=== PATIENT | male | born 1950 | race African-American/Black ===

== ENCOUNTER → 2018-03-15 | Outpatient (CLI) | payer MEDICARE ==
[2016-02-20 07:53] VITALS: BP 128/84
[~2018-03-15] MED LIST: ELET40TA PO; LOVA20TA2 PO; SILO8CAP2 PO
--- NOTE | 2018-03-15 15:35 | KCIC ---
EXAM: Lumbar spine MRI without contrast. HISTORY: Lower back pain. L4 fracture. TECHNIQUE: Multiplanar, multisequence magnetic resonance imaging of the lumbar spine was performed without contrast. COMPARISON: None. FINDINGS: There is minimal lumbar scoliosis. There is minimal retrolisthesis of L1 on L2. No vertebral body fracture is seen. There is edema within the right L5 pedicle, likely degenerative rather than due to a stress reaction. No suspicious osseous lesion is seen. The conus terminates at L1. There is a 2.6 x 0.6 cm T2 hyperintense lesion anterior to the L1-L2 disc space and between the aorta and inferior vena cava. This may be due to an incidental retroperitoneal cystic lesion. This is not included on axial images. At L1-L2, there is a disc bulge and anterior predominant endplate remodeling. There is mild bilateral facet arthropathy. There is mild bilateral foraminal stenosis. At L2-L3, there is a disc bulge and suspected right foraminal to extraforaminal disc protrusion. There is mild bilateral facet arthropathy. There is mild bilateral foraminal stenosis. At L3-L4, there is a left foraminal to extra foraminal disc protrusion and annular tear superimposed on a disc bulge. There is mild bilateral facet arthropathy. There is hypertrophy of the ligamentum flavum. There is mild bilateral foraminal stenosis. There is mild central canal stenosis. At L4-L5, there is a disc bulge and endplate remodeling. There is mild bilateral facet arthropathy. There is mild central canal stenosis. At L5-S1, there is no stenosis. IMPRESSION: 1. Mild multilevel degenerative change within the lumbar spine, described in detail above. This results in stenosis as before mentioned levels. 2. No acute osseous finding. Specifically, no finding to correlate with a reported L4 fracture on a study performed at an outside facility. The prior study is not available for comparison at the time of dictation. Electronically signed by: Evelina Hickman MD (03/15/2018 3:31 PM) [id number]
== END | disposition home or self-care (01) ==
LOC: KCIC MRI 14:16
PROVIDERS: ATTEND Nurse Practitioner Family
DX: M47.26 Other spondylosis with radiculopathy, lumbar region (principal); M48.061 Spinal stenosis, lumbar region without neurogenic claudication; R93.89 Abnormal findings on diagnostic imaging of other specified body structures
CPT/HCPCS: 72148

== ENCOUNTER → 2018-12-01 | Outpatient (CLI) | payer MEDICARE ==
[2016-02-20 07:53] VITALS: BP 128/84
--- NOTE | 2018-12-01 15:26 | KCIC ---
STUDY: MRI of the right knee without contrast INDICATION: Right knee pain. COMPARISON: None. TECHNIQUE: Multiplanar MR imaging of the right knee performed without the use of intravenous or intra-articular contrast. FINDINGS: Menisci: The medial meniscus is mostly absent with the exception of some torn, thinned and irregular posterior horn and root tissue. A large displaced meniscal fragment to account for this appearance is not identified and prior subtotal resection is a consideration given history. The lateral meniscus posterior root is irregular and high in signal. Free edge tearing of the mid lateral meniscal body, image 12 series 8. Cruciate ligaments: Intact ACL and PCL. Collateral ligaments: The MCL is intact. No acute injury to the lateral collateral ligamentous structures. The IT band is unremarkable. Tendons: The extensor tendon complex is intact. The semimembranosus tendon is thickened and irregular with partial tearing. Cartilage: Patellofemoral: Extensive high-grade/full-thickness chondral loss involving the patellar facets and median ridge with subchondral edema and cystic change. Chondral heterogeneity and fissuring at the trochlear groove at the medial trochlea. Lateral compartment: Partial thickness chondral loss at the weightbearing lateral tibial plateau and some high-grade chondral loss of the far medial lateral tibial plateau approaching the tibial eminence. Chondral thinning at the far posterior nonweightbearing lateral femoral condyle. Medial compartment: Prominent area of high-grade/full-thickness chondral loss at the medial aspect of the weightbearing medial compartment. Some partial thickness chondrosis extends into the nonweightbearing medial femoral condyle. Bones: No acute fracture. Marrow edema seen at the tibial eminence in the expected location of the lateral meniscal root attachment, image 13 series 8. Miscellaneous: Small knee joint effusion small Szymanski's cyst which may be leaking fluid along the pes anserine tendons. IMPRESSION: 1. Near complete absent visualization of the medial meniscus with the exception of some torn and irregular posterior horn and root fibers without displaced meniscal tissue seen. This could be related to prior subtotal meniscectomy given history of remote prior surgery. 2. Heterogeneous signal of the lateral meniscus posterior root especially near its tibial insertion. There is some marrow edema in the region of its expected insertion which could be related to meniscal contusion or partial tearing. Free edge tearing of the mid lateral meniscal body also noted. 3. The PCL is intact. The ACL is somewhat heterogeneous but with intact traversing fibers. 4. Tendinosis and partial tearing of the semimembranosus near its tibial insertion. 5. Tricompartmental chondrosis with greatest involvement of the patellofemoral and medial compartments where there are large areas of high-grade/full-thickness loss. Scattered associated subchondral marrow edema/cystic change. 6. Small knee joint effusion and a small Szymanski's cyst which may be leaking fluid along the pes anserine tendons. Electronically signed by: FRANCISCO BOSCH MD (12/01/2018 3:23 PM) [id number]
== END | disposition home or self-care (01) ==
LOC: KCIC MRI 09:11
PROVIDERS: ATTEND Physician Assistant
DX: S83.281A Other tear of lateral meniscus, current injury, right knee, initial encounter (principal); M25.461 Effusion, right knee; M71.21 Synovial cyst of popliteal space [Baker], right knee; X58.XXXA Exposure to other specified factors, initial encounter; Y93.89 Activity, other specified; Y92.89 Other specified places as the place of occurrence of the external cause; Y99.8 Other external cause status
CPT/HCPCS: 73721

== ENCOUNTER 2019-03-14 07:18 | Day surgery (SDC) | payer MEDICARE ==
[~2019-03-14] VITALS: Ht 189.2 cm; Wt 97.5 kg
[~2019-03-14 07:18] MED LIST changes: +HYDROmorphone 2 MG/ML VIAL IV PRN; +IV RINGERS,LACTATED 1000ML 1,000 ML IV SCH; +MORPHINE SULFATE 2 MG/ML VIAL. IV PRN; +ONDANSETRON PF 4 MG/2 ML VIAL. IV PRN; +PROCHLORPERAZINE 10 MG/2 ML VIAL. IV PRN; +fentaNYL PF VIAL 100 MCG/2 ML VIAL IV PRN
[2019-03-14] MEDS ORDERED: ASPI81TA50 PO (07:41)
[2019-03-14] MEDS ORDERED: LEVE500T6 PO (07:43)
[2019-03-14] MEDS ORDERED: PRIM50TA24 PO (07:43)
[2019-03-14] MEDS ORDERED: LIDOCAINE 2% PF 5 ML VIAL. ONE (08:03)
[2019-03-14] MEDS ORDERED: PROPOFOL 20 ML IV ONE (08:03)
[2019-03-14] MEDS ORDERED: ONDANSETRON PF 4 MG/2 ML VIAL. ONE (08:03)
[2019-03-14] MEDS ORDERED: fentaNYL PF VIAL 100 MCG/2 ML VIAL ONE (08:03)
[2019-03-14] MEDS ORDERED: DEXAMETHASONE SOD PHOS 4 MG/ML VIAL ONE (08:03)
--- NOTE | 2019-03-14 08:19 | DISCH ---
DISCHARGE INSTRUCTIONS Condition on Discharge Condition on Discharge: Stable Activity After Discharge Activity Instructions for Disc: Activity as tolerated Bathing Instructions: Shower-keep dressing dry Lifting Instructions after Dis: No heavy lifting, No pulling or pushing Weight Bearing Status after Di: As tolerated Diet after Discharge Diet after Discharge: Regular Wound Incision Care Wound/Incision Care: Ice to area for comfort, Keep wound/cast CDI, Keep wound elevated, Change dressing Other wound/incision instructi: okay to change dressing after [address] after DC Call your doctor for: Concerns you may have Follow-Up Follow up with: Rajat in 2 weeks KEISHA MARTÍNEZ II, MD Mar 14, 2019 08:19
[2019-03-14] MEDS ORDERED: BUPIVACAINE MPF 0.5% 30 ML VIAL. ONE (08:26)
[2019-03-14] MEDS ORDERED: LIDOCAINE 1% 20 ML VIAL. ONE (08:26)
--- NOTE | 2019-03-14 09:11 | PDOC4 ---
Operative Note Operative Note Date of procedure: 03/14/2019 Surgeon: Rodolfo Martínez Preoperative diagnosis: Right middle finger trigger finger Postoperative diagnosis: Same Procedure performed: Open right third trigger finger release Anesthesia: General Findings: Thickened nodule and flexor tendon Blood loss: 1mL Tourniquet time: 10min Complications: none Reason for procedure: Patient is a pleasant 68-year-old male who has had painful catching at his right third digit. We have tried injections in the past and these have not had any effect. Due to failure of conservative therapies and inte rference with his activities daily living, we discussed proceeding with the above surgery and he elected to proceed. Description of procedure: Patient was greeted in the preoperative area by myself for the correct extremity was verified and marked, initials on the correct digit. He was taken back to the operative suite and his antibiotics were started as he was brought back. Once in the operating room, he was transferred to respond the operating table and secured the bed with all pressure points padded. The hand board attachment was secured to the operating room table. He underwent successful induction of a general anesthetic. The right upper extremity was then prepped and draped in our usual sterile fashion and we conducted our standard preoperative timeout. I then made about a 1 cm transverse incision just proximal to the volar metacarpal head of the affected digit and dissected subcutaneous tissues tissue with a mosquito. Identified the flexor tendon sheath and the A1 kendrick, used a Ragnell retractor at the distal portion of the incision and tenotomies to release the A1 kendrick. I then used the mosquito is to delivered the flexor tendons from the incision to help ensure accomplished a complete release and I was confident I had. After this, the wound was irrigated out and the skin was closed with 3-0 nylon in a mattress fashion. A sterile soft bulky dressing was then applied. Patient was awakened from anesthesia. No complications. Surgery was tolerated well by the patient and at the conclusion the patient was transferred gently supine to the recovery room cart and taken to PACU in a stable next bit condition. Postoperative plan is to discharge him home, active range of motion and elevation were encouraged. Hell follow up with me in 2 weeks, sooner should a problem arise. RODOLFO MARTÍNEZ II, MD Mar 14, 2019 09:11
[2019-03-14 09:50] VITALS: BP 105/59
[2019-03-14] MEDS ORDERED: DOCU-109 PO (09:54)
[2019-03-14] MEDS ORDERED: ONDA8TAB9 PO (09:55)
[2019-03-14] MEDS ORDERED: HYDR-3164 PO (09:55)
[2019-03-14] MEDS ORDERED: HYDROcodone/APAP 5/325MG 1 TAB TABLET PO ONE (10:00)
[2019-03-14] MEDS ORDERED: BUPIVACAINE-EPI 0.25%-1:200000 MPF 30 ML VIAL. INJ ONE (10:30)
== END 2019-03-14 10:30 | disposition home or self-care (01) ==
LOC: SURG 07:18
PROVIDERS: ATTEND Orthopaedic Surgery Sports Medicine
DX: M65.331 Trigger finger, right middle finger (principal); E78.5 Hyperlipidemia, unspecified; Z98.890 Other specified postprocedural states; Z91.041 Radiographic dye allergy status; Z87.891 Personal history of nicotine dependence; Z79.82 Long term (current) use of aspirin
CPT/HCPCS: 26055; A7015; J0690; J1100; J2001; J2405; J2704; J3010; J3490; J7120

== ENCOUNTER → 2019-03-27 | Outpatient (CLI) | payer MEDICARE ==
[2019-03-14 09:50] VITALS: BP 105/59
[~2019-03-27] MED LIST changes: +ASPI81TA50 PO; +DOCU-109 PO; +GADOTERATE 5 MMOL/10ML VIAL. IVP ONE; +HYDR-3164 PO; -HYDROmorphone 2 MG/ML VIAL IV PRN; -IV RINGERS,LACTATED 1000ML 1,000 ML IV SCH; +LEVE500T6 PO; -MORPHINE SULFATE 2 MG/ML VIAL. IV PRN; +ONDA8TAB9 PO; -ONDANSETRON PF 4 MG/2 ML VIAL. IV PRN; +PRIM50TA24 PO; -PROCHLORPERAZINE 10 MG/2 ML VIAL. IV PRN; -fentaNYL PF VIAL 100 MCG/2 ML VIAL IV PRN
--- NOTE | 2019-03-27 15:18 | KCIC ---
BRAIN WO/W CONTRAST Date: 03/27/2019 11:00 AM Indication: New onset seizures. Remote history of AVM resection. Comparison: CT 02/24/2019. Technique: Multiplanar multisequence MRI of the brain was performed with and without intravenous contrast using the standard protocol. 20 cc Dotarem contrast was administered intravenously during the exam. Findings: No acute infarct. No acute or chronic hemorrhage. The ventricles are normal in size and configuration without hydrocephalus. Mild to moderate scattered FLAIR hyperintensities in the subcortical and periventricular deep white matter with confluence in the left parietal periventricular white matter, a nonspecific finding, most commonly seen with chronic small vessel ischemic disease. Postsurgical changes of right parietal craniotomy. Small amount of underlying encephalomalacia. Right parietal 1 cm ovoid lesion demonstrating central T1 hyperintensity and rim of T2 hypointensity, with associated gradient susceptibility artifact. 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 The pituitary and sella are normal. No Chiari malformation. The visualized upper cervical spine is normal. The visualized orbits and globes are normal. The visualized paranasal sinuses are clear. The mastoid air cells are clear. Normal flow voids within the vertebral, basilar, and internal carotid arteries indicating patency. IMPRESSION: 1. No acute infarct, acute hemorrhage, suspicious mass, or hydrocephalus. 2. Small area of encephalomalacia underlying the patient's right parietal craniotomy. Small right parietal cavernoma. Consider one or both of these findings as a possible etiology of the patient's seizure activity. Electronically signed by: Romario Mcginnis MD (03/27/2019 3:15 PM) [id number]
== END | disposition home or self-care (01) ==
LOC: KCIC MRI 10:35
PROVIDERS: ATTEND Psychiatry & Neurology Neurology
DX: G93.89 Other specified disorders of brain (principal); Z98.890 Other specified postprocedural states
CPT/HCPCS: 70553; A9575

== ENCOUNTER → 2021-08-27 | Outpatient (CLI) | payer MEDICARE ==
--- NOTE | 2021-08-27 10:55 | KCIC ---
EXAMINATION: MRI MRCP and MRI abdomen WO/W CONTRAST. Technique: Multiplanar multisequence MRI of the abdomen is performed without and with intravenous con trast. With the MRCP protocol series also performed including 3-D reconstructions. 20cc Clariscan was administered intravenously. HISTORY: 71 years Male weight loss, nausea and vomiting, family history of the pancreatic cancer in the patient's mother. COMPARISON: CT scan from July 30, 2021. FINDINGS: There are multiple simple cysts seen in the liver and the kidneys measuring up to 5 cm in the right h epatic lobe and 5.5 cm and the left kidney. This demonstrates no enhancement after contrast administr ation. The enhancement of the parenchyma in the liver and kidneys otherwise is normal with no solid m ass. The spleen is unremarkable. The pancreatic parenchyma appears unremarkable with no focal mass identified. The dual phase imaging, demonstrate no drop of signal in the liver to suggest the fatty infiltration. The gallbladder demonstrates no stones. The bile ducts and the pancreatic ducts appear normal in kwabena susanne. Three-dimensional MRCP was performed using maximum intensity projection reconstruction on the same wo rkstation showing artifacts with the no definite the abnormality demonstrated in the bile ducts or pa ncreatic ducts. The abdominal aorta is normal in caliber. No para-aortic significantly enlarged lymph nodes seen.. There is no fluid collection or free fluid in the abdomen identified. The marrow signal in the lumbar spine is within normal limits. No enhancing mass. IMPRESSION: Multiple simple liver and renal cysts. No suspicious mass. No evidence of biliary or pancreatic ducta l dilatation or obstruction. Electronically signed by: Fletcher Mandel MD (08/27/2021 10:53 AM) [id number]
== END ==
LOC: KCIC MRI 08:23
PROVIDERS: ATTEND Family Medicine
DX: N28.1 Cyst of kidney, acquired (principal); K76.89 Other specified diseases of liver; R63.4 Abnormal weight loss; R10.13 Epigastric pain
CPT/HCPCS: 74182; 82565; A9575